=== PATIENT | female | born 1950 | race Caucasian/White ===

== ENCOUNTER → 2016-08-20 | Outpatient (CLI) | payer OTHER ==
--- NOTE | 2016-08-20 10:50 | DIAGNOSTIC IMAGING REPORT ---
CT LUMBAR SPINE WITHOUT CT DOSE: 1330.05 mGy.cm CLINICAL HISTORY: SPINAL STENOSIS TECHNIQUE: Helical images were acquired in transverse plane. Reformatted sagittal and coronal images were reviewed. CONTRAST: No contrast was administered COMPARISON STUDY: None. FINDINGS: L1-2 level: There is no evidence of significant disc bulge or focal herniation. There is no evidence of spinal or foraminal stenosis. L2-3 level: There is a posterior disc osteophyte complex. There is mild spinal canal narrowing. There is no evidence of significant foraminal narrowing L3-4 level: There is a disc osteophyte complex. There is moderate spinal stenosis. There is no significant foraminal narrowing L4-5 level: There is a right lateral disc bulge/protrusion. Postlaminectomy changes are visualized. There is no significant foraminal narrowing L5-S1 level: There is a small disc osteophyte complex. There is no significant spinal or foraminal stenosis. There is partial visualization of a 6 cm right renal cyst IMPRESSION: 1. Postsurgical changes of a posterior laminectomy at the L4 level 2. Multilevel spondylitic changes 3. Mild spinal stenosis at the L2-3 level, and moderate spinal stenosis at the L3-4 level. Electronically signed by: Irving Santizo M.D. 08/20/2016 10:48 AM Dictated Date/Time: 08/20/2016 10:42 AM
== END | disposition home or self-care (01) ==
LOC: C.CTS 09:59
PROVIDERS: ATTEND Orthopaedic Surgery Orthopaedic Surgery of the Spine
DX: M48.06 Spinal stenosis, lumbar region (principal)